=== PATIENT | female | born 1950 | race Caucasian/White ===

== ENCOUNTER 2018-03-25 05:25 | Observation (INO) | payer MEDICARE, OTHER ==
[2018-03-25] MEDS ORDERED: NEOSTIGMINE 3 MG/3 ML SYRINGE (06:19)
[2018-03-25] MEDS ORDERED: ROCURONIUM 50 MG INJ ×2 (06:19→07:00)
[2018-03-25] MEDS ORDERED: FENTAnyl 50 MCG/ML VIAL (06:19)
[2018-03-25] MEDS ORDERED: LIDOCAINE 2% (SDV) 5 ML INJ (06:19)
[2018-03-25] MEDS ORDERED: ONDANSETRON 4 MG INJ (06:19)
[2018-03-25] MEDS ORDERED: DEXAMETHASONE 4 MG/ML 1 ML INJ (06:19)
[2018-03-25] MEDS ORDERED: GLYCOPYRROLATE 0.4 MG INJ (06:19)
[2018-03-25] MEDS ORDERED: MIDAZOLAM 1 MG/ML 2 ML INJ (06:19)
[2018-03-25] MEDS ORDERED: PROPOFOL 20 ML (06:19)
[2018-03-25] MEDS ORDERED: ROPIVACAINE 0.5 % 30 ML VIAL (06:20)
[2018-03-25] MEDS ORDERED: NALOXONE (0.4 MG/ML) INJ IV (06:30)
[2018-03-25 06:38] LABS: ALKALINE PHOSPHATASE 54 IU/L (42-121)
[2018-03-25 06:38] LABS: PHOSPHORUS 3.8 mg/dl (2.5-4.9)
[2018-03-25 06:56] LABS: FREE T4 (FREE THYROXINE) 1.15 ng/dl (0.78-2.44)
[2018-03-25] MEDS ORDERED: CEFAZOLIN 1 GM INJ (07:43)
[2018-03-25] MEDS: ROPIVACAINE 0.5 % 30 ML VIAL (08:38)
[2018-03-25] MEDS: LACTATED RINGER'S 1,000 ML IV (08:56)
[2018-03-25] MEDS ORDERED: LACTATED RINGER'S 1,000 ML IV (09:30)
[2018-03-25] MEDS: POVIDONE IODINE 10% 28.4 GM OINT (11:35)
[2018-03-25] MEDS ORDERED: SOD CHLORIDE 0.9% 1,000 ML IV ×2 (11:48→12:42)
[2018-03-25] MEDS ORDERED: ONDANSETRON 4 MG INJ IV ×2 (12:00→13:00)
[2018-03-25] MEDS ORDERED: DIPHENHYDRAMINE 25 MG CAP PO (12:00)
[2018-03-25] MEDS ORDERED: BISACODYL 10 MG SUPP PR (12:00)
[2018-03-25] MEDS: CEFAZOLIN 1 GM INJ IV (12:00)
[2018-03-25] MEDS ORDERED: HYDROmorphONE 0.2 MG/ML PCA IV (12:00)
[2018-03-25] MEDS ORDERED: morphine (1 MG/ML) 10ML SYRINGE IV (12:15)
[2018-03-25] MEDS: morphine 10 MG INJ IV (12:22)
[2018-03-25] MEDS: OXYCODONE/ACETAMINOPHEN (5/325) TAB PO (12:31)
[2018-03-25] MEDS ORDERED: morphine 2 MG INJ IV (13:00)
[2018-03-25] MEDS ORDERED: OXYCODONE/ACETAMINOPHEN (5/325) TAB PO ×2 (13:00)
[2018-03-25] MEDS ORDERED: CEFAZOLIN 1 GM/50 ML (PMX) 50 ML IVPB (15:30)
[2018-03-25] MEDS ORDERED: SENNA/DOCUSATE NA (8.6MG/50MG) TAB PO (21:00)
[2018-03-26] MEDS ORDERED: RIVAROXABAN 10 MG TABLET PO (18:00)
[2018-03-27] MEDS ORDERED: MAGNESIUM HYDROXIDE 30ML CUP PO (21:00)
[2018-04-07 14:05] LABS: PTH CALCIUM 9.3 mg/dL (8.6-10.4); PTH INTACT 41 pg/mL (14-64)
== END 2018-03-25 15:00 | disposition home or self-care (01) ==
LOC: SDS 05:25 → REC 14:39 → SDS 05:25 → REC 11:48
PROVIDERS: Orthopaedic Surgery
DX: M19.071 Primary osteoarthritis, right ankle and foot (principal)
CPT/HCPCS: 29898; 71045; 73610-RT; 82306; 83970; 84075; 84100; 84439; 84443